=== PATIENT | female | born 1990 | race Caucasian/White ===

== ENCOUNTER 2022-01-14 00:46 | Emergency (ER) | payer MEDICAID ==
[~2022-01-14] VITALS: Ht 157.5 cm; Wt 59.0 kg
[2022-01-14 01:00] VITALS: BP 111/72
== END 2022-01-14 09:16 | disposition left against medical advice (07) ==
LOC: ER 00:46
DX: Z53.21 Procedure and treatment not carried out due to patient leaving prior to being seen by health care provider (principal)